=== PATIENT | female | born 2005 | race Caucasian/White ===

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

== ENCOUNTER 2023-07-17 17:09 | Emergency (ER) | payer MEDICAID, OTHER ==
[~2023-07-17] VITALS: Ht 162.6 cm; Wt 50.8 kg
[2023-07-17] MEDS ORDERED: VENL150C5 PO (19:03)
[2023-07-17 19:17] VITALS: BP 117/80; PULSE 76; RESP 18; O2SAT 98
== END 2023-07-17 19:30 | disposition home or self-care (01) ==
LOC: EDH 17:09
DX: F41.9 Anxiety disorder, unspecified (principal); F32.A Depression, unspecified; Z79.899 Other long term (current) drug therapy